=== PATIENT | female | born 1935 | race Caucasian/White ===

== ENCOUNTER → 2018-11-10 | Outpatient (CLI) | payer MEDICARE, BC ==
[~2018-11-10] MED LIST: AMLO5TAB10 PO; ANAS1TAB47 PO; APIX2.5T PO; CARV25TA2 PO; OLME1TAB25 PO; SIMV20TA3 PO; VORT5TAB PO
--- NOTE | 2018-11-10 13:19 | KCIC ---
EXAMINATION: Magnetic resonance imaging (MRI) of the lumbar spine without contrast 11/10/2018 11:00 AM HISTORY: Low back pain. TECHNIQUE: Multiplanar multi-weighted MRI of the lumbar spine was performed without intravenous contrast using the standard lumbar spine protocol. Contrast information: None administered. COMPARISON: None available. FINDINGS: Transitional anatomy is noted at the lumbosacral junction with lumbarization of the first sacral segment. There is a rudimentary disc at S1-S2. There is minimal retrolisthesis of L1 on L2 and L2 on L3. There is grade 1 anterolisthesis of L4 on L5 and L5 on S1. Vertebral body heights are maintained. An inferior endplate Schmorl's node is identified at L1 without significant height loss. There is associated edema involving the Schmorl's node which measures approximately 9 x 9 mm. There is mild disc height loss at L1-L2 and L2-L3. There is mild disc height loss at L4-L5 and L5-S1. Conus medullaris terminates at L1-L2. Distal spinal cord signal intensity is normal in all sequences. There is disc desiccation at all levels of lumbar spine. Annular fissures are identified at L2-L3 and L4-L5 and L5-S1. Abdominal aorta is normal in caliber. Versus portions of the retroperitoneum appear normal. T12-L1: There is mild disc bulge. Mild facet arthropathy. No neuroforaminal or spinal canal stenosis. L1-L2: There is a mild circumferential disc bulge. There is mild facet arthropathy ligamentum flavum infolding. There is moderate bilateral neuroforaminal stenosis. Mild spinal canal stenosis without cord compression. L2-L3: There is a moderate disc bulge with central disc extrusion extending cranially to the infra pedicle level of L2 and inferiorly to the supra pedicle level of L3. There is mild facet arthropathy with ligamentum flavum infolding. There is moderate bilateral neuroforaminal stenosis, left greater than right. There is bilateral lateral recess stenosis. Moderate spinal canal stenosis, exacerbated by epidural lipomatosis. L3-L4: There is a moderate disc bulge with central disc extrusion. There is moderate facet arthropathy ligamentum flavum infolding. There is moderate bilateral neuroforaminal stenosis. Moderate spinal canal stenosis with bilateral lateral recess stenosis, left greater than right. L4-L5: There is uncovering of the disc secondary to anterolisthesis with superimposed disc bulge. There is severe facet arthropathy ligamentum flavum infolding. There is moderate bilateral neuroforaminal stenosis. Mild right lateral recess stenosis. Mild/moderate spinal canal stenosis, exacerbated by epidural lipomatosis. L5-S1: There is mild disc bulge asymmetric to the right. There is moderate to severe facet arthropathy. No significant neuroforaminal or spinal canal stenosis. IMPRESSION: 1. 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 2. 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 Electronically signed by: Maribel Bright MD (11/10/2018 1:16 PM) [id number]
== END | disposition home or self-care (01) ==
LOC: KCIC MRI 10:16
PROVIDERS: ATTEND Family Medicine
DX: M51.17 Intervertebral disc disorders with radiculopathy, lumbosacral region (principal); M47.26 Other spondylosis with radiculopathy, lumbar region; M48.061 Spinal stenosis, lumbar region without neurogenic claudication; M51.46 Schmorl's nodes, lumbar region; M12.88 Other specific arthropathies, not elsewhere classified, other specified site; E88.2 Lipomatosis, not elsewhere classified; Z90.710 Acquired absence of both cervix and uterus; Z90.49 Acquired absence of other specified parts of digestive tract; Z90.89 Acquired absence of other organs
CPT/HCPCS: 72148